=== PATIENT | male | born 1970 | race Caucasian/White ===

== ENCOUNTER 2018-12-05 12:05 | Emergency (ER) | payer OTHER, SELFPAY ==
[2018-12-05 12:46] LABS: Lavender RECEIVED; Red RECEIVED
[2018-12-05 12:49] LABS: #Basophils 0.1 thou/uL (0.0-0.2); #Eosinphils 0.1 thou/uL (0.0-0.7); #Lymphocytes 0.5 thou/uL (1.20-3.40); #Monocytes 0.4 thou/uL (0.11-0.59); #Neutrophils 3.9 thou/uL (1.40-6.50); %Basophils 1.3 % (0.0-1.0); %Eosinophils 1.3 % (0.0-10.0); %Lymphocytes 10.4 % (21.0-51.0); %Monocytes 8.2 % (0.0-10.0); %Neutrophils 78.8 % (42.0-75.0); Hemoglobin 13.9 g/dL (14.0-18.0); Mean Corpuscular HGB CONC 33.9 g/dL (32.0-36.0); Mean Corpuscular Hemoglobin 32.6 pg (27.0-31.0); Mean Corpuscular Volume 96.2 fL (78.0-98.0); Red Blood Cell (RBC) Count 4.28 mill/uL (4.70-6.10)
[2018-12-05 12:50] LABS: Mean Platelet Volume 7.2 fL (7.4-10.4); Platelet Count 110 thou/uL (130-400); Platelet Morphology Comment Appears Decreased; RBC Distribution Width 11.6 % (11.5-14.5); RBC Morphology Normal
[2018-12-05 12:52] LABS: ALT (SGPT) 79 U/L (8-55); AST (SGOT) 115 U/L (5-34); Albumin 4.2 g/dL (3.5-5.0); Alkaline Phosphatase 105 U/L (40-150); Anion Gap 22 mmol/L (10-20); BUN (Urea Nitrogen) 6 mg/dL (8.9-20.6); Calc. Creatinine Clearance 0 mL/min (70-130); Calcium 9.2 mg/dL (7.8-10.44); Carbon Dioxide 17 mmol/L (22-29); Chloride 93 mmol/L (98-107); Estimated GFR-MDRD Greater than 90; Globulin 3.1 g/dL (2.4-3.5); Glucose 149 mg/dL (70-105); Potassium 3.9 mmol/L (3.5-5.1); Protein, Total 7.3 g/dL (6.0-8.3); Sodium 128 mmol/L (136-145)
[2018-12-05] MEDS ORDERED: Adacel (T-DAP) 0.5 ML SYRINGE ONE (13:32)
--- NOTE | 2018-12-05 13:34 | CT ---
CT OF BRAIN PERFORMED WIHTOUT CONTRAST ENHANCEMENT: HISTORY: Head trauma status post a seizure. FINDINGS: There appears to be a small right scalp hematoma. Intracranially, the ventricular and cisternal syst em is within normal limits. No signs for intracerebral hemorrhage or extraaxial fluid collections. Mastoid air cells and visualized sinuses appear clear. IMPRESSION: No acute intracranial abnormalities. POS: [facility]
--- NOTE | 2018-12-05 13:39 | CT ---
CT OF CERVICAL SPINE PERFORMED WITHOUT CONTRAST ENHANCEMENT: HISTORY: Neck pain status post seizure and fall. FINDINGS: The vertebral bodies are normal in height. There are degenerative osteophytic changes along the cour se of the spine. Minimal disk narrowing is seen at C5-6 and C6-7. There are degenerative facet montelongo ges present. The facets appear to be in normal alignment. I do not appreciate any significant canal or foraminal stenosis. IMPRESSION: No CT evidence of fracture of the cervical spine. POS: [facility]
--- NOTE | 2018-12-05 13:46 | CT ---
CT OF FACIAL BONES PERFORMED WITHOUT CONTRAST ENHANCEMENT: HISTORY: The patient had a seizure and status post fall with facial trauma. FINDINGS: There is a nasal bone fracture present. The fracture is minimally displaced. The zygomatic arches a ppear intact. Pterygoid processes are also intact. There are no air fluid levels within the sinuses. There is some mucosal change in the bilateral ethm oid and maxillary sinuses. The changes are minimal. There is no evidence of any orbital floor fract ure. No maxillary fracture. The mandible appears intact. The condyles are in normal position. IMPRESSION: Nasal bone fracture. POS: [facility]
[2018-12-05] MEDS ORDERED: Lidocaine 1% (PF) 30 ML VIAL ONE (16:57)
[2018-12-05] MEDS ORDERED: HYDROcodone/Acetaminophen 5/325 mg Tablet ONE (17:17)
--- NOTE | 2018-12-05 17:28 | RAD ---
LEFT HAND THREE VIEWS: 12/05/18 HISTORY: Left hand injury. FINDINGS: Comminuted multiplanar fracture involves the shaft of the proximal phalanx little finger with mild ap ex lateral and volar angulation. No evidence of intra-articular extension. Mild degenerative changes of the wrist. IMPRESSION: Left little finger fracture. POS: [facility]
--- NOTE | 2018-12-08 10:59 | EKG ---
Test Reason : Blood Pressure : / mmHG Vent. Rate : 059 BPM Atrial Rate : 059 BPM P-R Int : 128 ms QRS Dur : 092 ms QT Int : 428 ms P-R-T Axes : 011 021 001 degrees QTc Int : 423 ms Sinus bradycardia Minimal voltage criteria for LVH, may be normal variant Borderline ECG Confirmed by ENEDINA LIMON DO ([id number]), medical transcription editor JAMEE PABLO ([id number]) on 12/08/2018 10:59:33 AM Referred By: Confirmed By:ENEDINA LIMON DO
== END 2018-12-05 17:20 | disposition home or self-care (01) ==
LOC: ERS 12:05
DX: G40.909 Epilepsy, unspecified, not intractable, without status epilepticus (principal); S02.2XXA Fracture of nasal bones, initial encounter for closed fracture; S62.617A Displaced fracture of proximal phalanx of left little finger, initial encounter for closed fracture; I10 Essential (primary) hypertension; W18.30XA Fall on same level, unspecified, initial encounter
CPT/HCPCS: 12011; 26725; 36415; 70450; 70486; 72125; 80053; 85025; 90471; 90715; 93005; J2001